=== PATIENT | female | born 1950 | race Two or more races ===

== ENCOUNTER 2023-08-17 15:28 | Emergency (ER) | payer OTHER ==
[~2023-08-17] VITALS: Ht 154.9 cm; Wt 76.7 kg
[2023-08-17] MEDS ORDERED: LEVOTHYROXINE100 MCG (16:23)
[2023-08-17] MEDS ORDERED: LOSARTAN POTAS100 MG (16:23)
[2023-08-17] MEDS ORDERED: SIMVASTATIN40 MG (16:24)
[2023-08-17] MEDS ORDERED: VITAMIN D3125 MC1 (16:24)
[2023-08-17] MEDS ORDERED: TRILEPTAL300 MG (16:24)
[2023-08-17] MEDS ORDERED: CLONAZEPAM2 MG (16:24)
[2023-08-17 18:29] LABS: HEMATOCRIT 38.7 % (36.0-45.00); HEMOGLOBIN 13.1 g/dL (12.0-15.00); MEAN CELL VOLUME 93.3 fL (80.00-100.00); MEAN CORPUSCULAR HEMOGLOBIN 31.6 pg (27.00-32.0); MEAN CORPUSCULAR HGB CONC 33.9 g/dl (32.0-36.0); PLATELET COUNT 261 K/uL (150-450); RED BLOOD COUNT 4.14 M/uL (4.00-6.00)
[2023-08-17 18:49] LABS: CALCIUM 10.3 mg/dL (8.5-10.1); CREATININE SERUM 0.92 mg/dL (0.55-1.02); GFR 60.18; POTASSIUM 3.89 mEq/L (3.5-5.1)
== END 2023-08-17 21:32 | disposition home or self-care (01) ==
LOC: ER 15:28
PROVIDERS: General Practice
DX: S00.93XA Contusion of unspecified part of head, initial encounter (principal); S80.01XA Contusion of right knee, initial encounter; W18.39XA Other fall on same level, initial encounter; Y93.89 Activity, other specified; Y92.018 Other place in single-family (private) house as the place of occurrence of the external cause; Y99.9 Unspecified external cause status; I10 Essential (primary) hypertension; E03.9 Hypothyroidism, unspecified; G40.909 Epilepsy, unspecified, not intractable, without status epilepticus; Z88.8 Allergy status to other drugs, medicaments and biological substances

== ENCOUNTER 2024-09-06 09:55 | Outpatient (CLI) | payer OTHER ==
[~2024-09-06 09:55] MED LIST: CLONAZEPAM2 MG; LEVOTHYROXINE100 MCG; LOSARTAN POTAS100 MG; SIMVASTATIN40 MG; TRILEPTAL300 MG; VITAMIN D3125 MC1
== END 2024-09-06 09:57 | disposition home or self-care (01) ==
LOC: SONOGRAMA 09:55
PROVIDERS: ATTEND Pathology Anatomic Pathology
DX: D44.0 Neoplasm of uncertain behavior of thyroid gland (principal); E04.1 Nontoxic single thyroid nodule

== ENCOUNTER 2025-04-07 14:40 | Emergency (ER) | payer OTHER ==
[~2025-04-07] VITALS: Ht 154.9 cm; Wt 88.9 kg
[2025-04-07] MEDS ORDERED: LEVOTHYROXINE125 MC1 (15:21)
[2025-04-07 15:22] VITALS: BP 129/78; O2SAT 97
[2025-04-07] MEDS ORDERED: HYDROCHLOROTH12.5 M2 (15:22)
[2025-04-07] MEDS ORDERED: MECLIZINE HCL 12.5 MG TABLET PO ONE ×2 (16:45→17:26)
[2025-04-07] MEDS ORDERED: ORPHENADRINE CITRATE 30 MG/ML AMPUL IM ONE (18:00)
[2025-04-07] MEDS ORDERED: MECLIZINE HCL12.5 MG PO (18:42)
== END 2025-04-07 18:47 | disposition home or self-care (01) ==
LOC: ER 14:51
DX: R42 Dizziness and giddiness (principal); I10 Essential (primary) hypertension; E03.8 Other specified hypothyroidism; Z91.041 Radiographic dye allergy status
CPT/HCPCS: 36415; 93005; 96372; 99282; J2360